=== PATIENT | male | born 1975 | race Hispanic/Latino ===

== ENCOUNTER 2023-11-17 13:02 | Emergency (ER) | payer BC, MEDICARE ==
[~2023-11-17] VITALS: Ht 167.6 cm; Wt 70.3 kg
[2023-11-17] MEDS: TETRACAINE HCL 0.5% 4 ML OPHTH SOLN OP SCH (14:42)
[2023-11-17] MEDS: IBUPROFEN 800 MG TAB PO ONE (14:43)
[2023-11-17] MEDS ORDERED: ERYT1OIN7 OP (15:04)
[2023-11-17] MEDS ORDERED: IBUP-2077 PO (15:04)
[2023-11-17] MEDS: FLUORESCEIN SODIUM 1 STRIP STRIP ONE (15:54)
[2023-11-17] MEDS: ERYTHROMYCIN BASE 0.5% OPHTH OINT 1 GM TUBE OU ONE (15:56)
[2023-11-17 15:57] VITALS: BP 142/81; PULSE 72; RESP 20; TEMP 98.1; O2SAT 99
== END 2023-11-17 15:58 | disposition home or self-care (01) ==
LOC: EDH 13:02
DX: S05.02XA Injury of conjunctiva and corneal abrasion without foreign body, left eye, initial encounter (principal); W44.8XXA Other foreign body entering into or through a natural orifice, initial encounter; Y93.89 Activity, other specified; Y92.89 Other specified places as the place of occurrence of the external cause; Y99.0 Civilian activity done for income or pay

== ENCOUNTER 2024-10-11 13:32 | Emergency (ER) | payer BC ==
[~2024-10-11] VITALS: Ht 167.6 cm; Wt 70.8 kg
[~2024-10-11 13:32] MED LIST: ERYT1OIN7 OP; IBUP-2077 PO
[2024-10-11] MEDS: ORPHENADRINE 60MG/2ML IM SCH (15:57)
--- NOTE | 2024-10-11 16:00 | HMCIMG ---
EXAM: CR right Hip, 3 View. CLINICAL HISTORY: pain COMPARISON: None provided. FINDINGS: BONES: No acute fracture or aggressive appearing osseous lesion. JOINTS: No dislocation. The joint spaces are normal. SOFT TISSUES: The soft tissues are unremarkable. IMPRESSION: No acute osseous abnormality. /[place]
[2024-10-11] MEDS ORDERED: IBUP-2070 PO (16:02)
--- NOTE | 2024-10-11 16:03 | ERN ---
General Chief Complaint: Lower Extremity Pain/Injury Stated Complaint: RT SCIATICA PAIN Time Seen by MD: 13:34 Time Seen by Midlevel: 13:34 Source: patient History of Present Illness Initial Comments 48-year-old male who presents to the emergency department due to right hip right lower extremity pain onset 1 week. Patient denies any injuries, trauma or fu rther associated symptoms. Denies significant past medical history. Allergies: Coded Allergies: No Known Allergies (Unverified Allergy, Unknown, 11/17/23) Home Meds Active Scripts Ibuprofen (Ibuprofen) 600 Mg Tablet, 1 TAB PO TID for pain for 7 Days, #21 TAB 0 Refills with food Prov:DAYTON JULIEN 10/11/24 Erythromycin Base (Erythromycin) 5 Mg/Gram (0.5 %) Oint...g., 1 GM OP AD for 7 Days, #5 G Prov:DELBERT SOSA NP 11/17/23 Ibuprofen (Ibuprofen 800 mg Tab) 800 Mg Tab, 800 MG PO Q8H PRN for fever or pain, #30 TAB 0 Refills Prov:DELBERT SOSA STAFF REGISTERED NURSE 11/17/23 Past Medical History Past Medical History: No Pertinent History Past Surgical History: None ROS Dictation Constitutional: Negative for fever,chills, and weight loss Eyes: Negative for injury, pain,redness, and discharge ENT: Negative for injury,pain or swelling Cardiovascular: Negative for chest pain, palpitations, and edema Respiratory: Negative for shortness of breath, cough, and wheezing, Abdomen/GI: Negative for abdominal pain, nausea, vomiting, diarrhea, and constipation Back: Negative for injury and pain : Negative for painful urination, bleeding or discharge MS/Extremity: Positive for right lower leg pain Negative for injury and deformity Skin: Negative for rash, and discoloration Neuro: Negative for headache, weakness, numbness, tingling, and seizure Psych: Negative for suicide ideation, homicidal ideation, and hallucinations Physical Exam Physical Exam Dictation General: awake, alert, no acute distress Head/Face: Normocephalic, atraumatic Eyes: PERRL, EOMI, normal conjunctiva Neck: Supple, normal range of motion Cardiovascular: RRR, normal S1/S2 Respiratory: CTAB, no respiratory distress Skin: Warm, dry, normal turgor, no rash MS/Extremity: Pulses equal, no cyanosis, neurovascular intact, FROM Neuro: COAx4, GCS 15, strength 5/5, CN 2-12 intact, normal cerebellar exam, normal gait Psych: Normal behavior, mood, and affect normal Results EKG/XRAY/US/CT/MRI X-RAY Comment REASON: pain ORDERING PHYSICIAN: DAYTON JULIEN PROCEDURE: HIP U 2V R - HIP UNILAT 2-3VW RIGHT EXAM: CR right Hip, 3 View. CLINICAL HISTORY: pain COMPARISON: None provided. FINDINGS: BONES: No acute fracture or aggressive appearing osseous lesion. JOINTS: No dislocation. The joint spaces are normal. SOFT TISSUES: The soft tissues are unremarkable. IMPRESSION: No acute osseous abnormality. /[place] DICTATED BY: DIANA GUPTA MD DATE: 10/11/24 5185 Ultrasound Comment REASON: RLE pain ORDERING PHYSICIAN: DAYTON JULIEN PROCEDURE: VENOUS UNI - US VENOUS DOPPLER UNILATERAL EXAM: US for Deep Venous Thrombosis, Right Lower Extremity. CLINICAL HISTORY: Leg Pain and Swelling TECHNIQUE: Real-time ultrasound scan of the veins of the right lower extremity with color Doppler flow, spectral waveform analysis and compression. COMPARISON: None provided. FINDINGS: DEEP VEINS: The common femoral, superficial femoral, and popliteal veins are echolucent and compressible. There is normal color Doppler flow throughout. The visualized calf veins appear patent. SOFT TISSUES: No popliteal fossa cyst or other abnormalities. IMPRESSION: 1. No deep venous thrombosis in the right lower extremity. /[place] DICTATED BY: TERRY PERALTA Jr., MD DATE: 10/11/24 646 [facility] MDM: Differential diagnosis: Sciatic pain, fracture, sprain Rationale: 48-year-old male who presents to the emergency department due to right hip right lower extremity pain onset 1 week. Patient denies any injuries, trauma or further associated symptoms. Denies significant past medical history. Venous ultrasound of the right lower extremity obtained with no indications of DVT. X-rays of the right hip negative for fractures or acute findings. Patient received Kenalog and ketorolac in the ED. he was educated on findings and diagnosis. Advised to follow up with PCP. Return to the emergency department for any worsening symptoms. Patient verbalized understanding. Patient stable for discharge. There are no social concerns with this patient. I independently interpreted the test that were performed, results were reviewed by me and considered findings on radiology if ordered. Medical management and examination interpretation discussions were had by me with other qualified healthcare professionals as indicated for the patient's care. ED Course Orders Procedure Category Date Status Time Us Venous Doppler US 10/11/24 Resulted Unilateral 14:22 Hip Unilat 2-3vw Right RAD 10/11/24 Resulted 14:22 Ketorolac PHA 10/11/24 Complete Tromethamine 15mg/Ml 16:00 Orphenadrine Citrate PHA 10/11/24 Complete (Norflex) 16:00 Current Medications Medications (Trade) Dose Ordered Sig/Nilson Route PRN Reason Start Time Stop Time Status Last Admin Dose Admin Ketorolac Tromethamine (toRADol) 15 mg ONCE IM 10/11/24 16:00 10/11/24 16:09 DC 10/11/24 15:58 Orphenadrine Citrate (Norflex) 60 mg ONCE IM 10/11/24 16:00 10/11/24 16:09 DC 10/11/24 15:57 Vital Signs Date Time Temp Pulse Resp B/P (MAP) Pulse Ox O2 Delivery O2 Flow Rate FiO2 10/11/24 16:06 97.9 60 16 141/79 99 Room Air* 0 21 10/11/24 13:34 97.9 59 16 150/81 98 Room Air 0 DX & DISP Disposition: Discharge Departure Impression: Primary Impression: Sciatic nerve pain Condition: Stable Scripts Ibuprofen (Ibuprofen) 600 Mg Tablet 1 TAB PO TID for pain for 7 Days, #21 TAB 0 Refills with food Prov: DAYTON JULIEN 10/11/24 Additional Instructions: Discharge home. Rest. Follow up with primary care DrErica in 24 hours. Return to the ER for any acute changes or worsening symptoms. If any medications were prescribed take as directed. Okay to continue home medications unless otherwise discussed during your visit in the emergency room today. Patient was also advised to follow-up with primary care physician in 1 to 2 days for continued monitoring. Referrals: ANGIE STRICKLAND (PCP) I performed the substantive portion of the visit. I have reviewed and personally made and approve the management plan that is documented in the notes by myself or the OSVALDO. I acknowledge full responsibility for the patient's management plan. DAYTON JULIEN Oct 11, 2024 16:03
[2024-10-11 16:06] VITALS: BP 141/79; PULSE 60; RESP 16; TEMP 97.9; O2SAT 99
--- NOTE | 2024-10-11 17:10 | HMCIMG ---
EXAM: US for Deep Venous Thrombosis, Right Lower Extremity. CLINICAL HISTORY: Leg Pain and Swelling TECHNIQUE: Real-time ultrasound scan of the veins of the right lower extremity with color Doppler flow, spectral waveform analysis and compression. COMPARISON: None provided. FINDINGS: DEEP VEINS: The common femoral, superficial femoral, and popliteal veins are echolucent and compressible. There is normal color Doppler flow throughout. The visualized calf veins appear patent. SOFT TISSUES: No popliteal fossa cyst or other abnormalities. IMPRESSION: 1. No deep venous thrombosis in the right lower extremity. /[place]
== END 2024-10-11 16:09 | disposition home or self-care (01) ==
LOC: EDH 13:32
DX: M54.31 Sciatica, right side (principal); Z79.1 Long term (current) use of non-steroidal anti-inflammatories (NSAID)
CPT/HCPCS: 99284; 93971; 73502; 96372 ×2; J1885; J2360

== ENCOUNTER 2024-10-13 13:13 | Emergency (ER) | payer BC ==
[~2024-10-13] VITALS: Ht 167.6 cm; Wt 70.8 kg
[~2024-10-13 13:13] MED LIST changes: +IBUP-2070 PO
--- NOTE | 2024-10-13 13:37 | ERN ---
ED Note History of Present Illness Stated Complaint: RIGHT FLANK PAIN TO RIGHT LEG PAIN Chief Complaint: Lower Extremity Pain/Injury Time Seen by MD: 13:23 Dictation: PATIENT IS A 48-YEAR-OLD MALE WITH A 2ND VISIT TO [facility] FOR COMPLAINTS OF RIGHT POSTEROLATERAL HIP AND LUMBAR SACRAL PAIN FOR ONE WEEK. STATES THE ONSET WAS SPONTANEOUS WHILE HE WAS WALKING THEN HE STATES IT WAS RUNNING TO HIS POSTERIOR RIGHT LEG TO HIS [place] REGION. NO CHANGE IN BOWEL OR BLADDER FUNCTION NO NAUSEA VOMITING NO CHANGE IN URINATION. HE WAS SEEN ON TWO DAYS AGO AT THE EMERGENCY ROOM, WE WILL HAD AN X-RAY OF HIS HIP AND WAS TOLD TO FOLLOW UP WITH THE PRIMARY CARE DOCTOR HE CAME BACK TO US BECAUSE HE DOES NOT HAVE A DOCTOR. Allergies: Coded Allergies: No Known Allergies (Unverified Allergy, Unknown, 11/17/23) Home Meds Active Scripts Cyclobenzaprine HCl (Cyclobenzaprine HCl) 10 Mg Tablet, 1 TAB PO TID for muscle spasms for 10 Days, #30 TAB 0 Refills Prov:DELBERT SOSA NP 10/13/24 Omeprazole (Omeprazole) 40 Mg Capsule.dr, 1 CAP PO DAILY for 30 Days, #30 CAP 0 Refills Prov:DELBERT SOSA NP 10/13/24 Prednisone (Prednisone) 20 Mg Tablet, 80 MG PO DAILY for 5 Days, #20 TAB TAKE FOUR TABLETS DAILY WITH FOOD FOR FIVE DAYS. Prov:DELBERT SOSA NP 10/13/24 Ibuprofen (Ibuprofen) 600 Mg Tablet, 1 TAB PO TID for pain for 7 Days, #21 TAB 0 Refills with food Prov:DAYTON JULIEN 10/11/24 Erythromycin Base (Erythromycin) 5 Mg/Gram (0.5 %) Oint...g., 1 GM OP AD for 7 Days, #5 G Prov:DELBERT SOSA NP 11/17/23 Ibuprofen (Ibuprofen 800 mg Tab) 800 Mg Tab, 800 MG PO Q8H PRN for fever or pain, #30 TAB 0 Refills Prov:DELBERT SOSA NP 11/17/23 Past Medical History Past Medical History: No Pertinent History Surgical History: None RN Note Reviewed/Agreed w/PFSH: Yes Review of System Dictation CONSTITUTIONAL: NEGATIVE EXCEPT FOR HPI HEAD/FACE: NEGATIVE EXCEPT FOR HPI EENT: NEGATIVE EXCEPT FOR HPI RESPIRATORY: NEGATIVE EXCEPT FOR HPI GASTROINTESTINAL/ABDOMINAL: NEGATIVE EXCEPT FOR HPI GENITOURINARY: NEGATIVE EXCEPT FOR HPI MUSCULOSKELETAL: NEGATIVE EXCEPT FOR HPI RIGHT POSTERIOR LATERAL HIP AND LUMBAR PAIN RADIATING DOWN THE RIGHT LEG TO CALF INTEGUMENTARY: NEGATIVE EXCEPT FOR HPI NEUROLOGICAL/PSYCH: NEGATIVE EXCEPT FOR HPI HEMATOLOGIC/LYMPHATIC: NEGATIVE EXCEPT FOR HPI ALL SYSTEMS NEGATIVE, EXCEPT NOTED ABOVE. 13 POINT REVIEW OF SYSTEMS ASSESSED AND ALL NEGATIVE EXCEPT FOR ABOVE. Initial Vital Sign VS Vital Signs Date Time Temp Pulse Resp B/P (MAP) Pulse Ox O2 Delivery O2 Flow Rate FiO2 10/13/24 13:14 97.7 54 18 144/82 98 Room Air 10/13/24 15:09 0 21 Physical Exam Dictation VITAL SIGNS REVIEWED GENERAL APPEARANCE: ALERT, ORIENTED X 3, MODERATE ACUTE DISTRESS, WELL DEVELOPED, NOURISHED. HEAD AND FACE: NON-TRAUMATIC. EYES: PERRL, PINK CONJUNCTIVAS, EYELID NO TRAUMA, ANTERIOR CHAMBER WITH ARCUS SENILIS. EARS: PINNAS INTACT AND NO SIGNS OF TRAUMA OR ERYTHEMA EAR CANALS CLEAR AND NO DISCHARGE TM NO ERYTHEMA NOSE: NO DISCHARGE, NO BLEEDING. OROPHARYNX: MOUTH NORMAL, TONGUE PINK, PHARYNX CLEAR,NO ERYTHEMA, TONSILS NO EXUDATES, NO ABSCESSES NOTED, MUCOUS MEMBRANE MOIST NECK: SUPPLE, NON-TENDER, NO THYROMEGALY, NO MASSES, NO JVD, NO BRUITS BREAST:DEFERRED CHEST:NO TENDERNESS, NO CREPITUS, NO PARADOXICAL MOVEMENT, NO RETRACTIONS LUNGS:CLEAR, WELL-VENTILATED, SYMMETRIC, NO RALES, NO WHEEZING, NO RHONCHI, NO STRIDOR, GOOD BREATH SOUNDS BILATERALLY HEART: REGULAR RATE, REGULAR RHYTHM, NO MURMUR, NO GALLOPS VASCULAR: NO PERIPHERAL EDEMA, ABDOMEN: SOFT, POSITIVE BOWEL SOUNDS, NONDISTENDED, NO GUARDING, NONTENDER, NO REBOUND, NO MASSES NO HEPATOMEGALY, NO SPLENOMEGALY, NO MURDOCK'S SIGN, NO HERNIAS. RECTAL: DEFERRED GENITAL: DEFERRED NEUROLOGICAL: NORMAL SPEECH, MOTOR FUNCTION INTACT, SENSORY FUNCTION INTACT MUSCULOSKELETAL: NECK NONTENDER, FULL RANGE OF MOTION, DIFFUSE RIGHT LATERAL AND POSTERIOR HIP AND LUMBOSACRAL PAIN TENDERNESS. NO MIDLINE SPINE PAIN. POSITIVE STRAIGHT LEG RAISE TO THE RIGHT 10 DEGREE EXTREMITIES: NONTENDER, FULL RANGE OF MOTION SKIN: COLOR PINK, DRY, NO TURGOR, NO RASH, NO LACERATIONS, NO ABRASIONS, NO CONTUSIONS. LYMPHATIC: DEFERRED Results (Laboratory/Radiology) Laboratory/Radiology REASON: LUMBOSACRAL PAIN THAT RADIATES TO POSTERIOR RIGHT CALF ORDERING PHYSICIAN: DELBERT SOSA ROBOTIC MACHINE OPERATOR PROCEDURE: LUMB 2 3VW - LUMBAR SPINE 2-3VWS EXAM: CR Lumbar Spine, 3 View. CLINICAL HISTORY: LUMBOSACRAL PAIN THAT RADIATES TO POSTERIOR RIGHT CALF COMPARISON: None provided. FINDINGS: BONES: No acute fracture or aggressive appearing osseous lesion. ALIGNMENT: Alignment is within normal limits. No significant scoliosis. DISCS / DEGENERATIVE CHANGES: The disc spaces are preserved. SOFT TISSUES: The soft tissues are unremarkable. IMPRESSION: No acute lumbar spine abnormality evident. Electronically Labs Reviewed?: Yes ED Course ED Course Orders Procedure Category Date Status Time Lumbar Spine 2-3vws RAD 10/13/24 Resulted 13:34 Cyclobenzaprine Hcl PHA 10/13/24 Complete (Cyclobenzaprine Hcl 14:00 Dexamethasone 4mg/Ml PHA 10/13/24 Complete 1ml Vial (Dexametha 14:00 Ketorolac 60mg/2ml PHA 10/13/24 Complete (Toradol 60mg/2ml) 14:00 Current Medications Medications (Trade) Dose Ordered Sig/Nilson Route PRN Reason Start Time Stop Time Status Last Admin Dose Admin Cyclobenzaprine HCl (Cyclobenzaprine HCl) 10 mg ONCE ONCE PO 10/13/24 14:00 10/13/24 14:01 DC 10/13/24 13:52 Dexamethasone Sodium Phosphate (dexaMETHasone 4MG/ML 1ML VIAL) 8 mg ONCE ONCE IM 10/13/24 14:00 10/13/24 14:01 DC 10/13/24 13:52 Ketorolac Tromethamine (toRADol 60MG/ 2ML) 60 mg ONCE ONCE IM 10/13/24 14:00 10/13/24 14:01 DC 10/13/24 13:53 Vital Signs Date Time Temp Pulse Resp B/P (MAP) Pulse Ox O2 Delivery O2 Flow Rate FiO2 10/13/24 15:09 98.4 70 20 137/82 98 Room Air* 0 21 10/13/24 13:14 97.7 54 18 144/82 98 Room Air 1435/PAIN NOW 04/26. PATIENT WILL BE DISCHARGED HOME WITH ACUTE LUMBAR PAIN WITH SCIATICA. HE WILL BE REFERRED TO DR. JENNIFER MARADIAGA Medical Decision Making MDM MEDICAL DISCHARGE MAKING BASED ON X-RAY OF LUMBOSACRAL SPINE. PAIN MANAGED WITH TORADOL/CYCLOBENZAPRINE/DECADRON PATIENT DISCHARGED HOME TO FOLLOW UP WITH DR. JENNIFER MARADIAGA FOR HIP PAIN WITH SCIATICA SENT HOME WITH IBUPROFEN 800/PREDNISONE/OMEPRAZOLE DX & DISP Disposition: Discharge Departure Impression: Primary Impression: Sciatic nerve pain Additional Impression: Arthralgia of right hip Condition: Stable Scripts Cyclobenzaprine HCl (Cyclobenzaprine HCl) 10 Mg Tablet 1 TAB PO TID for muscle spasms for 10 Days, #30 TAB 0 Refills Prov: DELBERT SOSA NP 10/13/24 Omeprazole (Omeprazole) 40 Mg Capsule.dr 1 CAP PO DAILY for 30 Days, #30 CAP 0 Refills Prov: DELBERT SOSA NP 10/13/24 Prednisone (Prednisone) 20 Mg Tablet 80 MG PO DAILY for 5 Days, #20 TAB TAKE FOUR TABLETS DAILY WITH FOOD FOR FIVE DAYS. Prov: DELBERT SOSA NP 10/13/24 Additional Instructions: FOLLOW-UP WITH PRIMARY CARE PROVIDER IN 1 TO 2 DAYS. TAKE MEDICATIONS D IRECTED HERE IN THE EMERGENCY ROOM. OKAY TO CONTINUE HOME MEDICATIONS UNLESS OTHERWISE DISCUSSED DURING YOUR VISIT IN THE EMERGENCY ROOM TODAY. RETURN TO YOUR NEAREST EMERGENCY ROOM IF SYMPTOMS WORSEN OR IF THERE IS NO IMPROVEMENT. CALL 911 IF YOU NEED IMMEDIATE ASSISTANCE. TAKE TYLENOL OR MOTRIN [id number] NEEDED AND IF NO CONTRAINDICATIONS ARE PRESENT. INCREASE ORAL HYDRATION. A WOUND CULTURE OR URINE CULTURE WAS ORDERED HERE IN THE EMERGENCY ROOM DEPARTMENT PLEASE FOLLOW-UP WITH PRIMARY CARE PROVIDER AND ADVISE THEM TO GET REPEAT PORTS FROM OUR FACILITY. IF YOU HAD ANY CARMELA WRAP/SPLINTS THAT WERE APPLIED HERE, PLEASE DO NOT REMOVE THEM UNTIL YOU SEE YOUR PRIMARY CARE OR SPECIALTY. TAKE PREDNISONE DIRECTED DAILY WITH FOOD UNTIL GONE. TAKE FLEXERIL AND IBUPROFEN EVERY8 HOURS FOR THE NEXT TWO DAYS WITH FOOD. TAKE OMEPRAZOLE DIRECTED DAILY FOR THE NEXT14 DAYS TO PROTECT YOUR STOMACH. CALL ORTHOPEDIC SURGEON FOR APPOINTMENT IN THE NEXT 1-2 DAYS OR FOLLOW UP WITH ONE OF THE DOCTORS ON THE LIST PROVIDED YOU Referrals: ANGIE STRICKLAND (PCP) JENNIFER MARADIAGA MD Time of Disposition: 14:36 I have reviewed the case, and I agree with, Diagnosis and Plan DELBERT SOSA NP Oct 13, 2024 13:37 ZHANNA MONTIEL DO Oct 14, 2024 07:20
[2024-10-13] MEDS: CYCLOBENZAPRINE HCL 10 MG TABLET PO ONE (13:52)
--- NOTE | 2024-10-13 14:28 | HMCIMG ---
EXAM: CR Lumbar Spine, 3 View. CLINICAL HISTORY: LUMBOSACRAL PAIN THAT RADIATES TO POSTERIOR RIGHT CALF COMPARISON: None provided. FINDINGS: BONES: No acute fracture or aggressive appearing osseous lesion. ALIGNMENT: Alignment is within normal limits. No significant scoliosis. DISCS / DEGENERATIVE CHANGES: The disc spaces are preserved. SOFT TISSUES: The soft tissues are unremarkable. IMPRESSION: No acute lumbar spine abnormality evident. /[place]
[2024-10-13] MEDS ORDERED: OMEP40CA21 PO (14:39)
[2024-10-13] MEDS ORDERED: PRED20TA3 PO (14:39)
[2024-10-13] MEDS ORDERED: CYCL-309 PO (14:39)
[2024-10-13 15:09] VITALS: BP 137/82; PULSE 70; RESP 20; TEMP 98.5; O2SAT 98
== END 2024-10-13 15:11 | disposition home or self-care (01) ==
LOC: EDH 13:13
DX: M54.41 Lumbago with sciatica, right side (principal); M25.551 Pain in right hip; Z79.1 Long term (current) use of non-steroidal anti-inflammatories (NSAID); Z79.52 Long term (current) use of systemic steroids; Z79.899 Other long term (current) drug therapy
CPT/HCPCS: 99284; 72100; 96372 ×2; J1885; J1100